=== PATIENT | male | born 1965 | race Hispanic/Latino ===

== ENCOUNTER 2024-10-12 17:21 | Inpatient (IN) | payer SELFPAY ==
[~2024-10-12 17:21] MED LIST: Iopamidol-370 76% 500 ML MDV (1 ML CHARGE) ONE
[2024-10-12 17:49] LABS: #Basophils 0.04 10x3/uL (0.0-0.2); #Eosinophils 0.06 10x3/uL (0.0-0.7); #Monocytes 0.79 10x3/uL (0.11-0.59); #Neutrophils 10.59 10x3/uL (1.40-6.50); %Basophils 0.3 % (0.0-1.0); %Eosinophils 0.5 % (0.0-10.0); %Lymphocytes 12.4 % (21.0-51.0); %Monocytes 6.0 % (0.0-10.0); %Neutrophils 80.3 % (42.0-75.0); Hematocrit 44.6 % (42.0-52.0); Hemoglobin 15.3 g/dL (14.0-18.0); Mean Corpuscular Hemoglobin 33.0 pg (27.0-31.0); Mean Corpuscular Volume 96.1 fL (78.0-98.0); Platelet Count 300 10x3/uL (130-400); Red Blood Cell (RBC) Count 4.64 mill/uL (4.70-6.10); White Blood Cell (WBC) Count 13.18 10x3/uL (4.8-10.8)
[2024-10-12] MEDS ORDERED: Ondansetron PF 4 MG/2 ML Vial ONE ×2 (17:52→19:30)
[2024-10-12 18:17] LABS: ALT (SGPT) 20 U/L (Less than 45); AST (SGOT) 26 U/L (11-34); Albumin 4.5 g/dL (3.1-4.5); Alkaline Phosphatase 58 U/L (40-110); Anion Gap 18 mmol/L (10-20); BUN (Urea Nitrogen) 15 mg/dL (8.4-25.7); Bilirubin, Total 0.7 mg/dL (0.3-1.2); Calc. Creatinine Clearance 0 mL/min (70-130); Calcium 9.8 mg/dL (7.8-10.44); Carbon Dioxide 22 mmol/L (23-31); Chloride 98 mmol/L (98-107); Globulin 3.4 g/dL (2.4-3.5); Glucose 232 mg/dL (80-115); Lipase 28 U/L (8-78); Potassium 5.0 mmol/L (3.5-5.1); Sodium 133 mmol/L (136-145)
[2024-10-12 19:14] LABS: Bacteria/HPF None Seen HPF (None Seen); CAUTI Indications for Culture Pelvic or flank pain; Glucose, Urine (Dipstick) Greater than 1000 mg/dL (Negative); Leukocyte Negative Leu/uL (Negative); Protein, Urine (Dipstick) Negative (Neg-Trace); RBC/HPF None Seen HPF (0-3); Specific Gravity, Urine 1.020 (1.002-1.036); WBC/HPF 0-3 HPF (0-3)
[2024-10-12 19:15] LABS: Urine Culture Reflex No No
[2024-10-12] MEDS ORDERED: Ketorolac Tromethamine 30 MG (1 mL) VIAL ONE (19:29)
[2024-10-12] MEDS ORDERED: Benzocaine 20% Spray 60 ML CAN ONE (20:56)
[2024-10-12] MEDS ORDERED: Glucagon 1 MG/ML KIT IM PRN (22:09)
[2024-10-12] MEDS ORDERED: Ondansetron PF 4 MG/2 ML Vial IVP PRN (22:09)
[2024-10-12] MEDS ORDERED: Dextrose 50% Abboject 50 ML SYRINGE SLOW IVP PRN (22:09)
[2024-10-13 01:33] VITALS: BMI 24.0
[2024-10-13 06:00] LABS: #Basophils Less than 0.03 10x3/uL (0.0-0.2); #Eosinophils Less than 0.03 10x3/uL (0.0-0.7); #Monocytes 0.55 10x3/uL (0.11-0.59); #Neutrophils 3.63 10x3/uL (1.40-6.50); %Basophils 0.2 % (0.0-1.0); %Eosinophils 0.4 % (0.0-10.0); %Lymphocytes 9.6 % (21.0-51.0); %Monocytes 11.8 % (0.0-10.0); %Neutrophils 77.8 % (42.0-75.0); Hematocrit 43.3 % (42.0-52.0); Hemoglobin 14.7 g/dL (14.0-18.0); Mean Corpuscular Hemoglobin 32.7 pg (27.0-31.0); Mean Corpuscular Volume 96.4 fL (78.0-98.0); Platelet Count 257 10x3/uL (130-400); Red Blood Cell (RBC) Count 4.49 mill/uL (4.70-6.10); White Blood Cell (WBC) Count 4.67 10x3/uL (4.8-10.8)
[2024-10-13 06:32] LABS: Anion Gap 14 mmol/L (10-20); BUN (Urea Nitrogen) 17 mg/dL (8.4-25.7); Calc. Creatinine Clearance 84 mL/min (70-130); Calcium 9.0 mg/dL (7.8-10.44); Carbon Dioxide 26 mmol/L (23-31); Chloride 103 mmol/L (98-107); Glucose 225 mg/dL (80-115); Potassium 4.7 mmol/L (3.5-5.1); Sodium 138 mmol/L (136-145)
[2024-10-13] MEDS ORDERED: MD-Gastroview 120 ML BOT ONE (09:18)
[2024-10-13] MEDS: Acetaminophen 325 MG TAB PO PRN (10:38)
[2024-10-14 06:14] LABS: Anion Gap 19 mmol/L (10-20); BUN (Urea Nitrogen) 21 mg/dL (8.4-25.7); Calc. Creatinine Clearance 89 mL/min (70-130); Calcium 9.7 mg/dL (7.8-10.44); Carbon Dioxide 29 mmol/L (23-31); Chloride 102 mmol/L (98-107); Glucose 209 mg/dL (80-115); Potassium 4.1 mmol/L (3.5-5.1); Sodium 146 mmol/L (136-145)
[2024-10-14 06:30] LABS: Hematocrit 42.6 % (42.0-52.0); Hemoglobin 14.3 g/dL (14.0-18.0); Mean Corpuscular Hemoglobin 32.8 pg (27.0-31.0); Mean Corpuscular Volume 97.7 fL (78.0-98.0); Platelet Count 253 10x3/uL (130-400); Red Blood Cell (RBC) Count 4.36 mill/uL (4.70-6.10); White Blood Cell (WBC) Count 5.01 10x3/uL (4.8-10.8)
[2024-10-14 07:47] LABS: Platelet Adequacy Comment Platelets Normal; Polychromasia SLIGHT = 2-3 cells HPF (0-2); RBC Morphology Within Normal Limits; Smudge Cells 7.8 %
[2024-10-14] MEDS: hydrALAZINE 20 MG/ML VIAL SLOW IVP PRN (09:57)
[2024-10-15 05:26] LABS: #Basophils Less than 0.03 10x3/uL (0.0-0.2); #Eosinophils 0.05 10x3/uL (0.0-0.7); #Monocytes 0.59 10x3/uL (0.11-0.59); #Neutrophils 3.98 10x3/uL (1.40-6.50); %Basophils 0.4 % (0.0-1.0); %Eosinophils 0.9 % (0.0-10.0); %Lymphocytes 14.8 % (21.0-51.0); %Monocytes 10.8 % (0.0-10.0); %Neutrophils 72.9 % (42.0-75.0); Hematocrit 42.4 % (42.0-52.0); Hemoglobin 14.1 g/dL (14.0-18.0); Mean Corpuscular Hemoglobin 32.7 pg (27.0-31.0); Mean Corpuscular Volume 98.4 fL (78.0-98.0); Platelet Count 231 10x3/uL (130-400); Red Blood Cell (RBC) Count 4.31 mill/uL (4.70-6.10); White Blood Cell (WBC) Count 5.46 10x3/uL (4.8-10.8)
[2024-10-15 05:57] LABS: Anion Gap 16 mmol/L (10-20); BUN (Urea Nitrogen) 18 mg/dL (8.4-25.7); Calc. Creatinine Clearance 112 mL/min (70-130); Calcium 9.3 mg/dL (7.8-10.44); Carbon Dioxide 28 mmol/L (23-31); Chloride 100 mmol/L (98-107); Glucose 177 mg/dL (80-115); Potassium 3.9 mmol/L (3.5-5.1); Sodium 140 mmol/L (136-145)
[2024-10-15] MEDS ORDERED: Rocuronium Bromide 10 MG/ML (10ML VIAL) ONE (22:16)
[2024-10-15] MEDS ORDERED: SUCCINYLCHOLINE/SOD CL,ISO/PF 200 MG/10 ML SYRINGE FS ONE (22:16)
[2024-10-15] MEDS ORDERED: fentaNYL PF 100 MCG/2 ML SYRINGE ONE (22:17)
[2024-10-15] MEDS ORDERED: PROPOFOL 20 ML ONE (22:17)
[2024-10-15] MEDS ORDERED: metroNIDAZOLE 500 MG (100 mL) BAG ONE (22:34)
[2024-10-15] MEDS ORDERED: Ketamine In 0.9 % NaCl 50 MG/5 ML SYRINGE ONE (22:54)
[2024-10-15] MEDS ORDERED: PHENYLEPHRINE-NS 100 MCG/ML 10 ML SYRINGE ONE (23:06)
[2024-10-16] MEDS ORDERED: SUGAMMADEX SODIUM 200 MG/2 ML VIAL ONE (00:04)
[2024-10-16] MEDS ORDERED: fentaNYL PF 100 MCG/2 ML SYRINGE ONE (00:14)
[2024-10-16 05:44] LABS: Anion Gap 21 mmol/L (10-20); BUN (Urea Nitrogen) 13 mg/dL (8.4-25.7); Calc. Creatinine Clearance 112 mL/min (70-130); Calcium 8.2 mg/dL (7.8-10.44); Carbon Dioxide 21 mmol/L (23-31); Chloride 101 mmol/L (98-107); Glucose 173 mg/dL (80-115); Potassium 3.5 mmol/L (3.5-5.1); Sodium 139 mmol/L (136-145)
[2024-10-16 05:45] LABS: Hematocrit 40.0 % (42.0-52.0); Hemoglobin 13.4 g/dL (14.0-18.0); Mean Corpuscular Hemoglobin 33.0 pg (27.0-31.0); Mean Corpuscular Volume 98.5 fL (78.0-98.0); Platelet Count 230 10x3/uL (130-400); Red Blood Cell (RBC) Count 4.06 mill/uL (4.70-6.10); White Blood Cell (WBC) Count 4.95 10x3/uL (4.8-10.8)
[2024-10-16 07:24] LABS: Dohle Bodies SLIGHT; Platelet Adequacy Comment Platelets Normal; RBC Morphology Within Normal Limits; Smudge Cells 4.5 %
[2024-10-16] MEDS: HYDROcodone/Acetaminophen 5/325 mg Tablet PO PRN (09:49)
[2024-10-16 10:14] VITALS: BMI 24.0
[2024-10-16 15:07] LABS: CAUTI Indications for Culture Dysuria,urgency,freq; Glucose, Urine (Dipstick) 300 mg/dL (Negative); Leukocyte Negative Leu/uL (Negative); Protein, Urine (Dipstick) Negative (Neg-Trace); RBC/HPF 0-3 HPF (0-3); Specific Gravity, Urine 1.018 (1.002-1.036)
[2024-10-16 15:08] LABS: Bacteria/HPF 1+ HPF (None Seen)
[2024-10-16 15:09] LABS: Urine Culture Reflex No No
[2024-10-16 22:58] LABS: Hematocrit 37.1 % (42.0-52.0); Hemoglobin 12.4 g/dL (14.0-18.0); Mean Corpuscular Hemoglobin 32.9 pg (27.0-31.0); Mean Corpuscular Volume 98.4 fL (78.0-98.0); Platelet Count 191 10x3/uL (130-400); Red Blood Cell (RBC) Count 3.77 mill/uL (4.70-6.10); White Blood Cell (WBC) Count 9.03 10x3/uL (4.8-10.8)
[2024-10-16 23:09] LABS: Anion Gap 13 mmol/L (10-20); BUN (Urea Nitrogen) 10 mg/dL (8.4-25.7); Calc. Creatinine Clearance 106 mL/min (70-130); Calcium 8.0 mg/dL (7.8-10.44); Carbon Dioxide 25 mmol/L (23-31); Chloride 105 mmol/L (98-107); Glucose 135 mg/dL (80-115); Magnesium 1.3 mg/dL (1.6-2.6); Potassium 3.2 mmol/L (3.5-5.1); Sodium 140 mmol/L (136-145)
[2024-10-16 23:18] LABS: Anisocytosis SLIGHT = 6-15 cells HPF (0-5); Platelet Adequacy Comment Platelets Normal; Polychromasia SLIGHT = 2-3 cells HPF (0-2)
[2024-10-16] MEDS: Magnesium 2 GM/50 ML(in water) 2 GM in Premix 1 BAG IVPB SCH (23:45)
[2024-10-17] MEDS: Potassium Chloride 10 MEQ in Premix 1 BAG IVPB SCH (01:05)
[2024-10-17 05:24] LABS: Hematocrit 37.9 % (42.0-52.0); Hemoglobin 12.7 g/dL (14.0-18.0); Mean Corpuscular Hemoglobin 32.6 pg (27.0-31.0); Mean Corpuscular Volume 97.4 fL (78.0-98.0); Platelet Count 201 10x3/uL (130-400); Red Blood Cell (RBC) Count 3.89 mill/uL (4.70-6.10); White Blood Cell (WBC) Count 9.31 10x3/uL (4.8-10.8)
[2024-10-17 05:54] LABS: Platelet Adequacy Comment Platelets Normal; RBC Morphology Within Normal Limits; Smudge Cells 6.0 %
[2024-10-17 06:19] LABS: Anion Gap 14 mmol/L (10-20); BUN (Urea Nitrogen) 11 mg/dL (8.4-25.7); Calc. Creatinine Clearance 89 mL/min (70-130); Calcium 8.4 mg/dL (7.8-10.44); Carbon Dioxide 27 mmol/L (23-31); Chloride 100 mmol/L (98-107); Glucose 126 mg/dL (80-115); Potassium 3.8 mmol/L (3.5-5.1); Sodium 137 mmol/L (136-145)
[2024-10-20 08:23] LABS: #Basophils 0.04 10x3/uL (0.0-0.2); #Eosinophils 0.22 10x3/uL (0.0-0.7); #Monocytes 0.68 10x3/uL (0.11-0.59); #Neutrophils 7.88 10x3/uL (1.40-6.50); %Basophils 0.4 % (0.0-1.0); %Eosinophils 2.2 % (0.0-10.0); %Lymphocytes 10.6 % (21.0-51.0); %Monocytes 6.8 % (0.0-10.0); %Neutrophils 79.2 % (42.0-75.0); Hematocrit 36.0 % (42.0-52.0); Hemoglobin 12.3 g/dL (14.0-18.0); Mean Corpuscular Hemoglobin 32.3 pg (27.0-31.0); Mean Corpuscular Volume 94.5 fL (78.0-98.0); Platelet Count 266 10x3/uL (130-400); Red Blood Cell (RBC) Count 3.81 mill/uL (4.70-6.10); White Blood Cell (WBC) Count 9.95 10x3/uL (4.8-10.8)
[2024-10-20 08:35] LABS: Anion Gap 13 mmol/L (10-20); BUN (Urea Nitrogen) 5 mg/dL (8.4-25.7); Calc. Creatinine Clearance 112 mL/min (70-130); Calcium 8.5 mg/dL (7.8-10.44); Carbon Dioxide 29 mmol/L (23-31); Chloride 99 mmol/L (98-107); Glucose 266 mg/dL (80-115); Potassium 3.1 mmol/L (3.5-5.1); Sodium 138 mmol/L (136-145)
[2024-10-20] MEDS: Potassium Chloride 20 MEQ in Premix 1 BAG IVPB SCH (15:20)
[2024-10-20 15:36] LABS: #Basophils 0.04 10x3/uL (0.0-0.2); #Eosinophils 0.20 10x3/uL (0.0-0.7); #Monocytes 0.74 10x3/uL (0.11-0.59); #Neutrophils 9.17 10x3/uL (1.40-6.50); %Basophils 0.3 % (0.0-1.0); %Eosinophils 1.7 % (0.0-10.0); %Lymphocytes 11.2 % (21.0-51.0); %Monocytes 6.4 % (0.0-10.0); %Neutrophils 79.7 % (42.0-75.0); Hematocrit 37.8 % (42.0-52.0); Hemoglobin 13.4 g/dL (14.0-18.0); Mean Corpuscular Hemoglobin 33.3 pg (27.0-31.0); Mean Corpuscular Volume 93.8 fL (78.0-98.0); Platelet Count 299 10x3/uL (130-400); Red Blood Cell (RBC) Count 4.03 mill/uL (4.70-6.10); White Blood Cell (WBC) Count 11.52 10x3/uL (4.8-10.8)
[2024-10-20 18:45] LABS: Bacteria/HPF None Seen HPF (None Seen); CAUTI Indications for Culture Fever or rigors; Glucose, Urine (Dipstick) Greater than 1000 mg/dL (Negative); Leukocyte Negative Leu/uL (Negative); Protein, Urine (Dipstick) Negative (Neg-Trace); RBC/HPF 0-3 HPF (0-3); Specific Gravity, Urine 1.032 (1.002-1.036); WBC/HPF 0-3 HPF (0-3)
[2024-10-20 18:47] LABS: Urine Culture Reflex No No
[2024-10-21 04:35] LABS: #Basophils 0.06 10x3/uL (0.0-0.2); #Eosinophils 0.37 10x3/uL (0.0-0.7); #Monocytes 0.88 10x3/uL (0.11-0.59); #Neutrophils 10.67 10x3/uL (1.40-6.50); %Basophils 0.4 % (0.0-1.0); %Eosinophils 2.7 % (0.0-10.0); %Lymphocytes 11.6 % (21.0-51.0); %Monocytes 6.4 % (0.0-10.0); %Neutrophils 78.2 % (42.0-75.0); Hematocrit 34.3 % (42.0-52.0); Hemoglobin 11.7 g/dL (14.0-18.0); Mean Corpuscular Hemoglobin 32.6 pg (27.0-31.0); Mean Corpuscular Volume 95.5 fL (78.0-98.0); Platelet Count 304 10x3/uL (130-400); Red Blood Cell (RBC) Count 3.59 mill/uL (4.70-6.10); White Blood Cell (WBC) Count 13.67 10x3/uL (4.8-10.8)
[2024-10-21 04:57] LABS: Anion Gap 12 mmol/L (10-20); BUN (Urea Nitrogen) 7 mg/dL (8.4-25.7); Calc. Creatinine Clearance 114 mL/min (70-130); Calcium 8.4 mg/dL (7.8-10.44); Carbon Dioxide 29 mmol/L (23-31); Chloride 99 mmol/L (98-107); Glucose 186 mg/dL (80-115); Magnesium 1.4 mg/dL (1.6-2.6); Potassium 3.1 mmol/L (3.5-5.1); Sodium 137 mmol/L (136-145)
[2024-10-21] MEDS: Magnesium Sulfate In Water 4 GM in Premix 1 BAG IVPB SCH (06:27)
[2024-10-21] MEDS: Potassium Chloride 20 MEQ in Premix 1 BAG IVPB SCH (08:55)
[2024-10-21] MEDS: Enoxaparin 40 MG (0.4 mL) SYRINGE SC SCH (08:55)
[2024-10-21] MEDS: Lisinopril 5 MG TAB PO SCH (08:55)
[2024-10-21] MEDS: glipiZIDE 10 MG TAB PO SCH (08:56)
[2024-10-21 17:49] LABS: Potassium 3.4 mmol/L (3.5-5.1)
[2024-10-22 05:59] LABS: #Basophils 0.07 10x3/uL (0.0-0.2); #Eosinophils 0.39 10x3/uL (0.0-0.7); #Monocytes 0.82 10x3/uL (0.11-0.59); #Neutrophils 14.28 10x3/uL (1.40-6.50); %Basophils 0.4 % (0.0-1.0); %Eosinophils 2.3 % (0.0-10.0); %Lymphocytes 8.7 % (21.0-51.0); %Monocytes 4.7 % (0.0-10.0); %Neutrophils 82.6 % (42.0-75.0); Hematocrit 34.8 % (42.0-52.0); Hemoglobin 12.0 g/dL (14.0-18.0); Mean Corpuscular Hemoglobin 32.8 pg (27.0-31.0); Mean Corpuscular Volume 95.1 fL (78.0-98.0); Platelet Count 374 10x3/uL (130-400); Red Blood Cell (RBC) Count 3.66 mill/uL (4.70-6.10); White Blood Cell (WBC) Count 17.30 10x3/uL (4.8-10.8)
[2024-10-22 06:28] LABS: Anion Gap 12 mmol/L (10-20); BUN (Urea Nitrogen) 7 mg/dL (8.4-25.7); Calc. Creatinine Clearance 118 mL/min (70-130); Calcium 8.3 mg/dL (7.8-10.44); Carbon Dioxide 24 mmol/L (23-31); Chloride 104 mmol/L (98-107); Glucose 131 mg/dL (80-115); Magnesium 1.8 mg/dL (1.6-2.6); Potassium 4.0 mmol/L (3.5-5.1); Sodium 136 mmol/L (136-145)
[2024-10-22] MEDS: Magnesium 2 GM/50 ML(in water) 2 GM in Premix 1 BAG IVPB SCH (09:18)
[2024-10-22] MEDS ORDERED: GASTROGRAFIN 30 ML BOT ONE (10:29)
[2024-10-22] MEDS ORDERED: Iopamidol-370 76% 500 ML MDV (1 ML CHARGE) ONE (10:29)
[2024-10-22] MEDS ORDERED: Heparin 10,000 UNITS/ 10 ML VIAL SLOW IVP SCH (13:45)
[2024-10-22 13:55] LABS: INR-International Normal Ratio 1.3; Prothrombin Time 16.5 sec (12.0-14.7)
[2024-10-22 13:56] LABS: PTT 36.1 sec (22.9-36.1)
[2024-10-22 14:12] LABS: Hematocrit 38.0 % (42.0-52.0); Hemoglobin 12.5 g/dL (14.0-18.0); Platelet Count 367 10x3/uL (130-400)
[2024-10-22] MEDS: Heparin 10,000 UNITS/ 10 ML VIAL SLOW IVP SCH (19:46)
[2024-10-22 20:42] LABS: PTT Greater than 250.0 sec (22.9-36.1)
[2024-10-22] MEDS ORDERED: Enoxaparin 60 MG (0.6 mL) SYRINGE SC SCH (21:00)
[2024-10-23 05:39] LABS: #Basophils 0.05 10x3/uL (0.0-0.2); #Eosinophils 0.36 10x3/uL (0.0-0.7); #Monocytes 0.76 10x3/uL (0.11-0.59); #Neutrophils 9.56 10x3/uL (1.40-6.50); %Basophils 0.4 % (0.0-1.0); %Eosinophils 2.9 % (0.0-10.0); %Lymphocytes 13.7 % (21.0-51.0); %Monocytes 6.0 % (0.0-10.0); %Neutrophils 75.9 % (42.0-75.0); Hematocrit 32.2 % (42.0-52.0); Hemoglobin 11.0 g/dL (14.0-18.0); Mean Corpuscular Hemoglobin 32.4 pg (27.0-31.0); Mean Corpuscular Volume 94.7 fL (78.0-98.0); Platelet Count 441 10x3/uL (130-400); Red Blood Cell (RBC) Count 3.40 mill/uL (4.70-6.10); White Blood Cell (WBC) Count 12.60 10x3/uL (4.8-10.8)
[2024-10-23 05:51] LABS: Anion Gap 12 mmol/L (10-20); BUN (Urea Nitrogen) 6 mg/dL (8.4-25.7); Calc. Creatinine Clearance 118 mL/min (70-130); Calcium 8.0 mg/dL (7.8-10.44); Carbon Dioxide 24 mmol/L (23-31); Chloride 103 mmol/L (98-107); Glucose 214 mg/dL (80-115); Potassium 3.6 mmol/L (3.5-5.1); Sodium 135 mmol/L (136-145)
[2024-10-23] MEDS ORDERED: Lidocaine 1% w/Epinephrine 1:100K 20 ML VIAL ONE (12:07)
[2024-10-23] MEDS ORDERED: Sodium Bicarbonate 2.5 MEQ/5 ML SDV ONE (12:08)
[2024-10-23 22:32] LABS: INR-International Normal Ratio 1.2; Prothrombin Time 15.1 sec (12.0-14.7)
[2024-10-23 22:35] LABS: PTT 108.5 sec (22.9-36.1)
[2024-10-23] MEDS: Enoxaparin 60 MG (0.6 mL) SYRINGE SC SCH (23:40)
[2024-10-24 04:38] LABS: Hematocrit 32.0 % (42.0-52.0); Hemoglobin 10.8 g/dL (14.0-18.0); Mean Corpuscular Hemoglobin 32.4 pg (27.0-31.0); Mean Corpuscular Volume 96.1 fL (78.0-98.0); Platelet Count 513 10x3/uL (130-400); Red Blood Cell (RBC) Count 3.33 mill/uL (4.70-6.10); White Blood Cell (WBC) Count 7.59 10x3/uL (4.8-10.8)
[2024-10-24 05:11] LABS: Anion Gap 10 mmol/L (10-20); BUN (Urea Nitrogen) 5 mg/dL (8.4-25.7); Calc. Creatinine Clearance 114 mL/min (70-130); Calcium 7.7 mg/dL (7.8-10.44); Carbon Dioxide 25 mmol/L (23-31); Chloride 105 mmol/L (98-107); Glucose 243 mg/dL (80-115); Potassium 3.4 mmol/L (3.5-5.1); Sodium 137 mmol/L (136-145)
[2024-10-24 05:12] LABS: Anisocytosis SLIGHT = 6-15 cells HPF (0-5); Platelet Adequacy Comment Platelets Increased; Polychromasia SLIGHT = 2-3 cells HPF (0-2)
[2024-10-24 15:11] LABS: Hematocrit 34.5 % (42.0-52.0); Hemoglobin 11.4 g/dL (14.0-18.0); Platelet Count 512 10x3/uL (130-400)
[2024-10-25 05:46] LABS: Anion Gap 12 mmol/L (10-20); BUN (Urea Nitrogen) Less than 4 mg/dL (8.4-25.7); Calc. Creatinine Clearance 114 mL/min (70-130); Calcium 8.3 mg/dL (7.8-10.44); Carbon Dioxide 25 mmol/L (23-31); Chloride 104 mmol/L (98-107); Glucose 208 mg/dL (80-115); Potassium 3.9 mmol/L (3.5-5.1); Sodium 137 mmol/L (136-145)
[2024-10-25 05:56] LABS: Hematocrit 36.0 % (42.0-52.0); Hemoglobin 12.2 g/dL (14.0-18.0); Mean Corpuscular Hemoglobin 32.3 pg (27.0-31.0); Mean Corpuscular Volume 95.2 fL (78.0-98.0); Platelet Count 625 10x3/uL (130-400); Red Blood Cell (RBC) Count 3.78 mill/uL (4.70-6.10); White Blood Cell (WBC) Count 8.17 10x3/uL (4.8-10.8)
[2024-10-25 06:42] LABS: Platelet Adequacy Comment Platelets Increased; RBC Morphology Within Normal Limits; Smudge Cells 7.0 %
[2024-10-25] MEDS ORDERED: Iopamidol-370 76% 500 ML MDV (1 ML CHARGE) ONE (10:58)
[2024-10-25 15:55] VITALS: BP 113/71
[2024-10-25 18:22] LABS: #Basophils 0.04 10x3/uL (0.0-0.2); #Eosinophils 0.06 10x3/uL (0.0-0.7); #Monocytes 0.79 10x3/uL (0.11-0.59); #Neutrophils 18.13 10x3/uL (1.40-6.50); %Basophils 0.2 % (0.0-1.0); %Eosinophils 0.3 % (0.0-10.0); %Lymphocytes 5.8 % (21.0-51.0); %Monocytes 3.9 % (0.0-10.0); %Neutrophils 89.1 % (42.0-75.0); Hematocrit 31.2 % (42.0-52.0); Hemoglobin 10.5 g/dL (14.0-18.0); Mean Corpuscular Hemoglobin 33.0 pg (27.0-31.0); Mean Corpuscular Volume 98.1 fL (78.0-98.0); Platelet Count 683 10x3/uL (130-400); Red Blood Cell (RBC) Count 3.18 mill/uL (4.70-6.10); White Blood Cell (WBC) Count 20.35 10x3/uL (4.8-10.8)
[2024-10-25 18:35] LABS: ALT (SGPT) 16 U/L (Less than 45); AST (SGOT) 20 U/L (11-34); Albumin 2.5 g/dL (3.1-4.5); Alkaline Phosphatase 59 U/L (40-110); Anion Gap 16 mmol/L (10-20); BUN (Urea Nitrogen) 6 mg/dL (8.4-25.7); Bilirubin, Total 0.2 mg/dL (0.3-1.2); Calc. Creatinine Clearance 88 mL/min (70-130); Calcium 8.1 mg/dL (7.8-10.44); Carbon Dioxide 22 mmol/L (23-31); Chloride 102 mmol/L (98-107); Globulin 3.6 g/dL (2.4-3.5); Glucose 316 mg/dL (80-115); Potassium 4.1 mmol/L (3.5-5.1); Sodium 136 mmol/L (136-145)
[2024-10-25] MEDS ORDERED: HYDROmorphone 0.5 MG/0.5 ML SYRINGE SLOW IVP PRN (19:20)
[2024-10-25] MEDS ORDERED: Simethicone Chewable 80 MG TAB PO PRN (20:20)
[2024-10-25 21:20] LABS: #Basophils 0.04 10x3/uL (0.0-0.2); #Eosinophils Less than 0.03 10x3/uL (0.0-0.7); #Monocytes 0.58 10x3/uL (0.11-0.59); #Neutrophils 18.87 10x3/uL (1.40-6.50); %Basophils 0.2 % (0.0-1.0); %Eosinophils 0.0 % (0.0-10.0); %Lymphocytes 4.3 % (21.0-51.0); %Monocytes 2.8 % (0.0-10.0); %Neutrophils 91.8 % (42.0-75.0); Hematocrit 28.6 % (42.0-52.0); Hemoglobin 9.5 g/dL (14.0-18.0); Mean Corpuscular Hemoglobin 32.4 pg (27.0-31.0); Mean Corpuscular Volume 97.6 fL (78.0-98.0); Platelet Count 646 10x3/uL (130-400); Red Blood Cell (RBC) Count 2.93 mill/uL (4.70-6.10); White Blood Cell (WBC) Count 20.55 10x3/uL (4.8-10.8)
[2024-10-25 21:33] LABS: ALT (SGPT) 15 U/L (Less than 45); AST (SGOT) 19 U/L (11-34); Albumin 2.5 g/dL (3.1-4.5); Alkaline Phosphatase 54 U/L (40-110); Anion Gap 18 mmol/L (10-20); BUN (Urea Nitrogen) 7 mg/dL (8.4-25.7); Bilirubin, Total 0.2 mg/dL (0.3-1.2); Calc. Creatinine Clearance 85 mL/min (70-130); Calcium 8.1 mg/dL (7.8-10.44); Carbon Dioxide 21 mmol/L (23-31); Chloride 103 mmol/L (98-107); Globulin 3.4 g/dL (2.4-3.5); Glucose 315 mg/dL (80-115); Potassium 4.2 mmol/L (3.5-5.1); Sodium 138 mmol/L (136-145)
[2024-10-25 22:38] VITALS: TEMP 98.3
== END 2024-10-25 23:30 | disposition short-term general hospital (02) | DRG 330 ==
LOC: ERS 17:21 → SURG B 22:09 → CCU 10-25 19:18
PROVIDERS: ADMIT Surgery; ATTEND Surgery
PROC: 0DTA0ZZ Resection of Jejunum, Open Approach (ICD-10-PCS; principal; 2024-10-15)
PROC: 0DN80ZZ Release Small Intestine, Open Approach (ICD-10-PCS; 2024-10-15)
PROC: 30233J1 Transfusion of Nonautologous Serum Albumin into Peripheral Vein, Percutaneous Approach (ICD-10-PCS; 2024-10-15)
PROC: 3E03329 Introduction of Other Anti-infective into Peripheral Vein, Percutaneous Approach (ICD-10-PCS; 2024-10-16)
DX: K56.609 Unspecified intestinal obstruction, unspecified as to partial versus complete obstruction (principal); I82.4Y1 Acute embolism and thrombosis of unspecified deep veins of right proximal lower extremity; R18.8 Other ascites; J90 Pleural effusion, not elsewhere classified; S36.81XA Injury of peritoneum, initial encounter; S36.899A Unspecified injury of other intra-abdominal organs, initial encounter; E11.9 Type 2 diabetes mellitus without complications; Z98.890 Other specified postprocedural states; Z90.49 Acquired absence of other specified parts of digestive tract; I10 Essential (primary) hypertension; R50.9 Fever, unspecified; E78.5 Hyperlipidemia, unspecified; N40.0 Benign prostatic hyperplasia without lower urinary tract symptoms; E87.6 Hypokalemia; K66.8 Other specified disorders of peritoneum; E83.42 Hypomagnesemia; E11.65 Type 2 diabetes mellitus with hyperglycemia; Z79.899 Other long term (current) drug therapy
CPT/HCPCS: 36415; 36416; 49406; 71045; 74018; 74177; 74250; 77002; 80048; 80053; 81001; 83605; 83690; 83735; 84100; 84145; 85025; 85610; 85730; 86850; 86900; 86901; 87070; 87077; 87186; 87205; 87324; 87449; 88307; 93005; 93010; 93970; 96374; 96375; 96376; A4314; A4649; C1729; C1769; J0360; J1644; J1650; J1815; J1885; J2250; J2270; J2405; J2543; J2704; J3010; J3475; J3480; J3490; J7030; J7120; P9045; Q9963; Q9967